=== PATIENT | male | born 1965 | race Caucasian/White ===

== ENCOUNTER 2018-02-09 09:36 | Inpatient (IN) | payer SELFPAY ==
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
[2018-02-09] MEDS ORDERED: NS 1,000 ML IV ONE ×2 (09:42→10:43)
[2018-02-09] MEDS ORDERED: LORazepam 2 MG/ML INJ IVP ONE ×2 (09:42→11:19)
[2018-02-09 10:10] LABS: PLATELET COUNT 210 10^3/uL (150-400)
[2018-02-09] MEDS ORDERED: NALOXONE HCL 0.4 MG/ML INJ ONE ×2 (10:39→13:34)
[2018-02-09] MEDS ORDERED: NALOXONE HCL 0.4 MG/ML INJ IVP ONE ×2 (10:42→13:33)
[2018-02-09 10:58] LABS: INR 0.86 (0.83-1.16); PROTIME(PATIENT) 11.9 SEC (12.0-15.0)
[2018-02-09] MEDS ORDERED: ONDANSETRON DISINTEGRATING 4 MG TAB PO PRN (12:08)
[2018-02-09] MEDS ORDERED: ACETAMINOPHEN 325 MG TAB PO PRN (12:08)
[2018-02-09] MEDS ORDERED: ONDANSETRON 4 MG/2 ML VIAL IVP PRN (12:08)
[2018-02-09] MEDS ORDERED: LORazepam 2 MG/ML INJ IVP PRN (12:10)
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
[2018-02-09 14:04] LABS: CREATINE KINASE 337 IU/L (0-224)
[2018-02-09] MEDS: NS 1,000 ML IV SCH (14:37)
--- NOTE | 2018-02-09 14:45 | CPEKG ---
Test Reason : OPEN Blood Pressure : / mmHG Vent. Rate : 073 BPM Atrial Rate : 072 BPM P-R Int : 159 ms QRS Dur : 113 ms QT Int : 441 ms P-R-T Axes : 074 051 240 degrees QTc Int : 486 ms Sinus rhythm Probable left atrial enlargement Left ventricular hypertrophy Abnrm T, consider ischemia, anterolateral lds Confirmed by Ian Mendez ([id number]) on 02/09/2018 2:45:04 PM Referred By: Confirmed By:Ian Mendez
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
[2018-02-09] MEDS: DEXMEDETOMIDINE HCL 400 MCG in NS 100 ML IV SCH (20:40)
[2018-02-09] MEDS: LORazepam 2 MG/ML INJ IVP PRN (20:47)
[2018-02-10] MEDS: DEXMEDETOMIDINE HCL 400 MCG in NS 100 ML IV SCH ×3 (03:28→21:04)
[2018-02-10] MEDS: LORazepam 2 MG/ML INJ IVP PRN ×2 (04:18→19:41)
[2018-02-10] MEDS ORDERED: LORazepam 2 MG/ML INJ IVP PRN (05:30)
[2018-02-10] MEDS: NS 1,000 ML IV SCH (05:57)
[2018-02-10] MEDS: ENOXAPARIN 40 MG/0.4 ML SYR SC SCH (09:03)
[2018-02-10] MEDS ORDERED: PNEUMOCOCCAL 0.5ML VACCINE VIAL (PNEUMOVAX 23) IM ONE (11:33)
--- NOTE | 2018-02-10 13:55 | HOSPPROG ---
Hospitalist Progress Note Assessment/Plan: #Acute metabolic encephalopathy: due to ingestion. Resolved #DARCY: resolved with IVFs #Bipolar 2: stressed to patient to not purchase medications and self-dose at home. He says disposed these meds and will not take again -Spoke with Dr. Luz for consultation for medication suggestions. She advised me to andres TLC first #HTN: resume Lisinopril #Tachycardia: resolved with fluids #h/o DVT: he says not on anticoagulation #Diet: regular #DVT ppx: ambulatory #Disp: inpatient admission for TLC evaluation to ensure no risk for self-harm Subjective: required Precedex overnight for agitation Objective: Vital Signs Temp Pulse Resp BP Pulse Ox 37.0 C 84 16 157/75 H 97 02/10/18 11:45 02/10/18 11:45 02/10/18 11:45 02/10/18 11:45 02/10/18 11:45 Laboratory Results 02/10/18 06:00 02/09/18 02/10/18 02/11/18 05:59 05:59 05:59 Intake Total 2512 Output Total 1200 1550 Balance 1312 -1550 PT 11.9 SEC (12.0-15.0) L 02/09/18 10:17 INR 0.86 (0.83-1.16) 02/09/18 10:17 - Time Spent With Patient Time Spent with Patient: greater than 35 minutes Time Spent with Patient: Greater than 35 minutes spent on this patients care, greater than 50% of time spent counseling, educating, and coordinating care regarding the above mentioned plan. - Physical Exam Constitutional: no apparent distress Eyes: scleral injection Ears, Nose, Mouth, Throat: other (jazzmine face) Cardiovascular: regular rate and rhythym Respiratory: no respiratory distress Gastrointestinal: normoactive bowel sounds Genitourinary: no bladder fullness Skin: warm Musculoskeletal: full muscle strength Neurologic: AAOx3, CN II-XII Intact Psychiatric: interacting appropriately, not encephalopathic, other (pressured speech, restless) ICD10 Worksheet Patient Problems: Problems Problem Status Onset Metabolic encephalopathy Acute - ICD10 Problem Qualifiers (1) Metabolic encephalopathy
--- NOTE | 2018-02-10 15:44 | PDINTPN ---
[employer] Progress Note Assessment/Plan: Assessment: Altered mental status: His unresponsiveness is resolved, but he required Precedex last night due to agitation and is now fairly agitated, possibly manic Acute kidney injury: Resolved, with good urine output and normal creatinine Ingrown toenail Plan: Psychiatry evaluation. Wound care consultation 02/10/18 15:43 Subjective: The patient is agitated, complains of some toe pain at the site of an ingrown toenail. He states that he feels normal and would like to restart his Adderall , and he does not plan on taking the prescribed medications he was taking Objective: Vital Signs Temp Pulse Resp BP Pulse Ox 37.0 C 84 16 157/75 H 97 02/10/18 11:45 02/10/18 11:45 02/10/18 11:45 02/10/18 11:45 02/10/18 11:45 Laboratory Results 02/10/18 06:00 02/09/18 02/10/18 02/11/18 05:59 05:59 05:59 Intake Total 2512 Output Total 1200 1550 Balance 1312 -1550 PT 11.9 SEC (12.0-15.0) L 02/09/18 10:17 INR 0.86 (0.83-1.16) 02/09/18 10:17 Physical Exam - Physical Exam General Appearance: anxiety, other (Agitation) Extremities: other (Great toe with mild erythema at the nail bed.) ICD10 Worksheet Patient Problems: Problems Problem Status Onset Metabolic encephalopathy Acute
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
--- NOTE | 2018-02-10 18:24 | HOSPPROG ---
Hospitalist Progress Note Assessment/Plan: Addendum: Spoke with Dr. Redding with psychiatry. Recs: - Ativan 2mg IV TID with PRN q4hr -Hold Adderall (2x recommended dose). -Considered Olanzapine, but had anaphylactic reaction to Haldol (SOB, tongue swelling) -Consult Dr. Luz again in morning clarified. NOT taking Tiapine. Has been taking Tianeptine (opioid-agonist) Monitor for w/d; Ativan is appropriate treatment Additional time spent on direct care: 30 min (17:45-18:15) discussing medication recs with Dr. Redding and bedside discussing meds with . Objective: Vital Signs Temp Pulse Resp BP Pulse Ox 36.6 C 102 H 18 142/86 H 96 02/10/18 17:39 02/10/18 17:39 02/10/18 17:39 02/10/18 17:39 02/10/18 17:39 Laboratory Results 02/10/18 06:00 02/09/18 02/10/18 02/11/18 05:59 05:59 05:59 Intake Total 2512 1234 Output Total 1200 2450 Balance 1312 -1216 PT 11.9 SEC (12.0-15.0) L 02/09/18 10:17 INR 0.86 (0.83-1.16) 02/09/18 10:17 - Time Spent With Patient Time Spent with Patient: greater than 25 minutes Time Spent with Patient: Greater than 25 minutes spent on this patients care, greater than 50% of time spent counseling, educating, and coordinating care regarding the above mentioned plan. ICD10 Worksheet Patient Problems: Problems Problem Status Onset Metabolic encephalopathy Acute - ICD10 Problem Qualifiers (1) Metabolic encephalopathy
[2018-02-10] MEDS: LORazepam 2 MG/ML INJ IVP SCH (21:11)
[2018-02-11] MEDS: DEXMEDETOMIDINE HCL 400 MCG in NS 100 ML IV SCH (01:36)
--- NOTE | 2018-02-11 07:30 | PDMN ---
Medical Necessity Medical necessity: [facility] [place] status changed to INPT 02/10/18 for ongoing med nec. > 2 MN- further monitoring and eval and tx pt ingested Tianeptine- , AMS, pt still agitated further monitoring and psych eval pending. IV dexmedetomidine, IV Zofran, IV Ativan
[2018-02-11] MEDS: ENOXAPARIN 40 MG/0.4 ML SYR SC SCH (08:17)
[2018-02-11] MEDS: LORazepam 2 MG/ML INJ IVP SCH ×3 (08:17→15:19)
--- NOTE | 2018-02-11 09:42 | ASMTCASEMG ---
Living Arrangements What is your living Answers: With Spouse arrangement? Who do you live with? Type Of Residence What kind of residence do Answers: House you live in? Discharge Plan Comments Coordination Status Comments Notes: Patient is a 52yo male with a hx of Bipolar Disorder, anticoagulated for possible hx of blood clots, brought by EMS for evaluation of altered mental status. Patient has been admitted for acute encephalopathy, acute kidney injury, tachycardia, hx of DVT, and Bipolar Disorder. Patient was evaluated by [facility], disposition is patient does not meet criteria for inpatient hospitalization. Dr. Redding is being consulted regarding patient's medications. Patient has been self medicating with medications he has purchased online. Patient does have domestic violence charges against him and has 5 months left on his 18 month probation sentence. It is unclear if his is a support system for him at this time. Al[employer] Relations Manager has been ordered for cognitive eval. CM will follow. Date Signed: 02/11/2018 09:41 AM Electronically Signed By:Radha Beckman LCSW
[2018-02-11] MEDS: LORazepam 2 MG/ML INJ IVP PRN (13:07)
[2018-02-11 15:20] VITALS: BP 127/61
--- NOTE | 2018-02-11 16:21 | HOSPPROG ---
Hospitalist Progress Note Objective: Vital Signs Temp Pulse Resp BP Pulse Ox 36.7 C 82 18 127/61 H 100 02/11/18 15:19 02/11/18 15:19 02/11/18 15:19 02/11/18 15:19 02/11/18 15:19 02/10/18 02/11/18 02/12/18 05:59 05:59 05:59 Intake Total 1811 Output Total 900 Balance 911 PT 11.9 SEC (12.0-15.0) L 02/09/18 10:17 INR 0.86 (0.83-1.16) 02/09/18 10:17 ICD10 Worksheet Patient Problems: Problems Problem Status Onset Metabolic encephalopathy Acute
--- NOTE | 2018-02-11 16:40 | PDCONSULT ---
[employer] Analyst Note: Pt seen briefly. also spoke with . denied SI/HI or psychotic sxs, and denied feeling depressed. reports ready for discharge. A&Ox3. No indication for [facility]. [facility] provided with resources yesterday. Has outpt psychiatrist in [place]. provided with resources and support by [facility]. Completed note to follow.
--- NOTE | 2018-02-11 17:03 | ASMTLCPROG ---
Notes Note: Notes: [facility] requested to met with pt.'s to provide support and resources. Referrals provided for therapists, support group and discussed legal options. Date Signed: 02/11/2018 05:03 PM Electronically Signed By:Lakia Flores
--- NOTE | 2018-02-11 17:10 | ASMTLCPROG ---
Notes Note: Notes: [facility] met with pt. to discuss referrals for ongoing treatment. Pt is not interested in detox or feel a need for voluntary mental health admission. Pt does not appear to meet criteria for inpt. admission. Pt continued to deny thoughts of suicide or harm to others. [facility]LC unable to reach pt.'s at number listed. Pt verbalized a plan to return home with his . Pt stated he would consider outpt services. Referral provided to [facility] which offers a dual dx treatment/detox program both as an inpt and IOP/PHP programs. Date Signed: 02/11/2018 05:09 PM Electronically Signed By:Lakia Flores
== END 2018-02-11 19:20 | disposition home or self-care (01) | DRG 92 ==
LOC: F2N 12:36 → OBSVTOIN 02-10 16:55
PROVIDERS: ADMIT Internal Medicine; ATTEND Internal Medicine
DX: G92 Toxic encephalopathy (principal); T43.291A Poisoning by other antidepressants, accidental (unintentional), initial encounter; F31.81 Bipolar II disorder; N17.9 Acute kidney failure, unspecified; I10 Essential (primary) hypertension; L60.0 Ingrowing nail; Z86.718 Personal history of other venous thrombosis and embolism; Z23 Encounter for immunization
CPT/HCPCS: 80305; 83605-ER; 84484-ER; 92523-GN; 96374; G0008; G0009; G0378; G0480; J1650; J2060; J2310